=== PATIENT | male | born 1950 | race Caucasian/White ===

== ENCOUNTER 2020-02-02 12:18 | Inpatient (IN) ==
[2020-02-02] MEDS ORDERED: Ondansetron 4 MG/2 ML VIAL IVP PRN (13:32)
[2020-02-02] MEDS ORDERED: Dextrose Gel 15 GM/37.5 ML TUBE PO PRN ×2 (13:35)
[2020-02-02] MEDS ORDERED: D5% in Water 1,000 ML IVC PRN (13:35)
[2020-02-02] MEDS ORDERED: *HR* Dextrose 50 % in Water (Vial) 50 ML VIAL IVP PRN (13:35)
[2020-02-02] MEDS ORDERED: D5% in Water 1,000 ML IVC SCH (13:45)
[2020-02-02] MEDS: Apixaban 5 MG TABLET PO SCH (21:09)
[2020-02-02] MEDS: Melatonin 3 MG TABLET PO SCH (21:10)
[2020-02-03 08:05] LABS: BUN/Creatinine Ratio 38 (6-26); Blood Urea Nitrogen 21 mg/dL (8-23); Calcium 7.7 mg/dL (8.6-10.3); Carbon Dioxide 31 mEq/L (23-29); Chloride 104 mEq/L (98-107); Glucose 77 mg/dL (70-105); Magnesium 1.9 mg/dL (1.6-2.6); Osmolality,Calculated 294 (280-300); Phosphorous 2.4 mg/dL (2.7-4.5); Potassium 3.7 mEq/L (3.5-5.1); Sodium 141 mEq/L (136-145); eGFR For African Americans > 60 (> 60); eGFR For Non-African Americans > 60 (> 60)
[2020-02-03] MEDS: lisinopriL 20 MG TABLET PO SCH (08:35)
[2020-02-03] MEDS: Furosemide 20 MG TABLET PO SCH (08:35)
[2020-02-03] MEDS: Apixaban 5 MG TABLET PO SCH ×2 (08:35→20:55)
[2020-02-03] MEDS: Insulin DETEMIR 100 UNIT/ML X5UNITS SQ SCH (09:00)
[2020-02-03] MEDS ORDERED: Potassium Phosphate 44 MEQ in 0.9 % Sodium Chloride 250 ML IVPB ONE (09:00)
[2020-02-03] MEDS ORDERED: D5% in Water 1,000 ML IVC PRN (11:35)
[2020-02-03] MEDS ORDERED: *HR* Dextrose 50 % in Water (Vial) 50 ML VIAL IVP PRN (11:35)
[2020-02-03] MEDS ORDERED: Dextrose Gel 15 GM/37.5 ML TUBE PO PRN ×2 (11:35)
[2020-02-03] MEDS: Insulin LISPRO 300 UNITS/3 ML VIAL SQ SCH ×2 (11:48→16:24)
[2020-02-03] MEDS: Melatonin 3 MG TABLET PO SCH (20:55)
[2020-02-04 07:14] LABS: Basophils % 0.4 %; Eosinophils # 0.1 K/mcL (0.0-0.6); Eosinophils % 2.9 %; Hematocrit 37.8 % (37.5-50.1); Hemoglobin 12.4 g/dL (12.9-16.9); Immature Granulocytes % 0.4 % (0-4); Lymphocytes % 22.9 %; Mean Corpuscular HGB Conc 32.8 g/dL (31.6-35.5); Mean Corpuscular Hemoglobin 29.7 pg (28.0-33.3); Mean Corpuscular Volume 90.6 fL (83.0-100.0); Mean Platelet Volume 11.4 fL (9.4-12.4); Monocytes # 0.3 K/mcL (0.0-1.3); Monocytes % 6.7 %; Platelet Count 149 K/mcL (140-400); Red Blood Count 4.17 M/mcL (4.19-5.50); Red Cell Distribution Width 13.9 % (11.5-14.5); Segmented Neutrophils % 66.7 %; White Blood Count 4.5 K/mcL (4.3-11.1)
[2020-02-04 07:26] LABS: Alanine Aminotransferase 35 Units/L (7-52); Albumin 2.5 g/dL (3.5-5.7); Albumin/Globulin Ratio 1.1 (1.1-2.2); Alkaline Phosphatase 74 Units/L (34-104); Aspartate Amino Transferase 57 Units/L (13-39); BUN/Creatinine Ratio 32 (6-26); Bilirubin,Total 0.7 mg/dL (0.3-1.0); Blood Urea Nitrogen 18 mg/dL (8-23); Calcium 7.6 mg/dL (8.6-10.3); Carbon Dioxide 32 mEq/L (23-29); Chloride 104 mEq/L (98-107); Globulin 2.3 g/dL (2.4-3.5); Glucose 78 mg/dL (70-105); Osmolality,Calculated 293 (280-300); Phosphorous 3.8 mg/dL (2.7-4.5); Potassium 3.7 mEq/L (3.5-5.1); Sodium 141 mEq/L (136-145); Total Protein 4.8 g/dL (6.4-8.9); eGFR For African Americans > 60 (> 60); eGFR For Non-African Americans > 60 (> 60)
[2020-02-04 08:10] LABS: Platelet Estimate Normal (Normal)
[2020-02-04] MEDS: Insulin LISPRO 300 UNITS/3 ML VIAL SQ SCH ×3 (08:59→16:56)
[2020-02-04] MEDS: Furosemide 20 MG TABLET PO SCH (09:01)
[2020-02-04] MEDS: lisinopriL 20 MG TABLET PO SCH (09:01)
[2020-02-04] MEDS: Insulin DETEMIR 100 UNIT/ML X5UNITS SQ SCH ×2 (09:01→19:24)
[2020-02-04] MEDS: Apixaban 5 MG TABLET PO SCH ×2 (09:01→19:21)
[2020-02-04] MEDS: Acetaminophen 325 MG TABLET PO PRN (19:21)
[2020-02-04] MEDS: Melatonin 3 MG TABLET PO SCH (19:22)
[2020-02-05] MEDS: Insulin LISPRO 300 UNITS/3 ML VIAL SQ SCH ×3 (09:32→17:07)
[2020-02-05] MEDS: Furosemide 20 MG TABLET PO SCH (10:05)
[2020-02-05] MEDS: Insulin DETEMIR 100 UNIT/ML X5UNITS SQ SCH ×2 (10:05→21:20)
[2020-02-05] MEDS: lisinopriL 20 MG TABLET PO SCH (10:05)
[2020-02-05] MEDS: Apixaban 5 MG TABLET PO SCH ×2 (10:05→21:20)
[2020-02-05] MEDS: Acetaminophen 325 MG TABLET PO PRN ×2 (10:22→21:19)
[2020-02-05 10:55] LABS: Hematocrit 40.4 % (37.5-50.1); Hemoglobin 13.3 g/dL (12.9-16.9); Mean Corpuscular HGB Conc 32.9 g/dL (31.6-35.5); Mean Corpuscular Hemoglobin 29.7 pg (28.0-33.3); Mean Corpuscular Volume 90.2 fL (83.0-100.0); Mean Platelet Volume 11.2 fL (9.4-12.4); Platelet Count 166 K/mcL (140-400); Red Blood Count 4.48 M/mcL (4.19-5.50); Red Cell Distribution Width 13.7 % (11.5-14.5); White Blood Count 4.9 K/mcL (4.3-11.1)
[2020-02-05 11:27] LABS: Alanine Aminotransferase 28 Units/L (7-52); Albumin 2.7 g/dL (3.5-5.7); Alkaline Phosphatase 85 Units/L (34-104); Aspartate Amino Transferase 33 Units/L (13-39); BUN/Creatinine Ratio 23 (6-26); Bilirubin,Total 0.7 mg/dL (0.3-1.0); Blood Urea Nitrogen 14 mg/dL (8-23); Calcium 7.8 mg/dL (8.6-10.3); Carbon Dioxide 32 mEq/L (23-29); Chloride 103 mEq/L (98-107); Globulin 2.6 g/dL (2.4-3.5); Glucose 189 mg/dL (70-105); Magnesium 1.9 mg/dL (1.6-2.6); Osmolality,Calculated 298 (280-300); Sodium 141 mEq/L (136-145); Total Protein 5.3 g/dL (6.4-8.9); eGFR For African Americans > 60 (> 60); eGFR For Non-African Americans > 60 (> 60)
[2020-02-05] MEDS: Nystatin SUSP 5 ML UD.LIQ PO SCH ×3 (12:08→22:52)
[2020-02-05 17:37] LABS: Ferritin 121 ng/mL (20-250)
[2020-02-05] MEDS: Melatonin 3 MG TABLET PO SCH (21:19)
[2020-02-06] MEDS: lisinopriL 20 MG TABLET PO SCH (10:29)
[2020-02-06] MEDS: Acetaminophen 325 MG TABLET PO PRN ×2 (10:29→20:49)
[2020-02-06] MEDS: Insulin LISPRO 300 UNITS/3 ML VIAL SQ SCH ×3 (10:29→17:43)
[2020-02-06] MEDS: Nystatin SUSP 5 ML UD.LIQ PO SCH ×4 (10:29→20:49)
[2020-02-06] MEDS: Furosemide 20 MG TABLET PO SCH (10:29)
[2020-02-06] MEDS: Apixaban 5 MG TABLET PO SCH ×2 (10:29→20:49)
[2020-02-06] MEDS: Insulin DETEMIR 100 UNIT/ML X5UNITS SQ SCH ×2 (10:30→20:49)
[2020-02-06 11:08] LABS: Basophils % 0.2 %; Eosinophils # 0.2 K/mcL (0.0-0.6); Eosinophils % 2.5 %; Hematocrit 40.2 % (37.5-50.1); Hemoglobin 12.7 g/dL (12.9-16.9); Immature Granulocytes % 0.6 % (0-4); Lymphocytes # 1.3 K/mcL (0.6-4.6); Lymphocytes % 19.9 %; Mean Corpuscular HGB Conc 31.6 g/dL (31.6-35.5); Mean Corpuscular Hemoglobin 28.2 pg (28.0-33.3); Mean Corpuscular Volume 89.3 fL (83.0-100.0); Mean Platelet Volume 10.9 fL (9.4-12.4); Monocytes # 0.4 K/mcL (0.0-1.3); Neutrophils # 4.5 K/mcL (1.6-8.9); Platelet Count 212 K/mcL (140-400); Red Cell Distribution Width 13.8 % (11.5-14.5); Segmented Neutrophils % 70.8 %; White Blood Count 6.3 K/mcL (4.3-11.1)
[2020-02-06 11:20] LABS: BUN/Creatinine Ratio 18 (6-26); Blood Urea Nitrogen 11 mg/dL (8-23); Calcium 7.9 mg/dL (8.6-10.3); Carbon Dioxide 35 mEq/L (23-29); Chloride 103 mEq/L (98-107); Glucose 151 mg/dL (70-105); Osmolality,Calculated 292 (280-300); Potassium 4.3 mEq/L (3.5-5.1); Sodium 140 mEq/L (136-145); eGFR For African Americans > 60 (> 60); eGFR For Non-African Americans > 60 (> 60)
[2020-02-06] MEDS: Melatonin 3 MG TABLET PO SCH (20:49)
[2020-02-07] MEDS: Insulin LISPRO 300 UNITS/3 ML VIAL SQ SCH ×3 (07:21→16:44)
[2020-02-07 07:23] LABS: Hematocrit 38.1 % (37.5-50.1); Mean Corpuscular HGB Conc 31.5 g/dL (31.6-35.5); Mean Corpuscular Hemoglobin 27.7 pg (28.0-33.3); Mean Platelet Volume 10.6 fL (9.4-12.4); Platelet Count 213 K/mcL (140-400); Red Blood Count 4.33 M/mcL (4.19-5.50); Red Cell Distribution Width 13.8 % (11.5-14.5); White Blood Count 7.3 K/mcL (4.3-11.1)
[2020-02-07 07:54] LABS: BUN/Creatinine Ratio 17 (6-26); Blood Urea Nitrogen 10 mg/dL (8-23); Calcium 7.9 mg/dL (8.6-10.3); Carbon Dioxide 34 mEq/L (23-29); Chloride 104 mEq/L (98-107); Glucose 100 mg/dL (70-105); Osmolality,Calculated 289 (280-300); Potassium 4.2 mEq/L (3.5-5.1); Sodium 140 mEq/L (136-145); eGFR For African Americans > 60 (> 60); eGFR For Non-African Americans > 60 (> 60)
[2020-02-07] MEDS: Nystatin SUSP 5 ML UD.LIQ PO SCH ×4 (09:55→19:46)
[2020-02-07] MEDS: lisinopriL 20 MG TABLET PO SCH (09:55)
[2020-02-07] MEDS: Furosemide 20 MG TABLET PO SCH (09:55)
[2020-02-07] MEDS: Apixaban 5 MG TABLET PO SCH ×2 (09:55→19:45)
[2020-02-07] MEDS: Insulin DETEMIR 100 UNIT/ML X5UNITS SQ SCH ×2 (09:56→19:46)
[2020-02-07 10:14] LABS: C-Reactive Protein 17 mg/L (Less than 10)
[2020-02-07] MEDS: Melatonin 3 MG TABLET PO SCH (19:45)
[2020-02-07] MEDS: Acetaminophen 325 MG TABLET PO PRN (19:46)
[2020-02-08] MEDS ORDERED: cloNIDine HCL 0.1 MG TABLET PO PRN (07:59)
[2020-02-08] MEDS: Insulin LISPRO 300 UNITS/3 ML VIAL SQ SCH ×3 (08:25→16:48)
[2020-02-08] MEDS: Acetaminophen 325 MG TABLET PO PRN ×2 (08:27→21:49)
[2020-02-08] MEDS: lisinopriL 20 MG TABLET PO SCH (08:28)
[2020-02-08] MEDS: Apixaban 5 MG TABLET PO SCH ×2 (08:28→20:43)
[2020-02-08] MEDS: Furosemide 20 MG TABLET PO SCH (08:28)
[2020-02-08] MEDS: Insulin DETEMIR 100 UNIT/ML X5UNITS SQ SCH ×2 (08:28→20:43)
[2020-02-08] MEDS: Nystatin SUSP 5 ML UD.LIQ PO SCH ×4 (08:28→20:46)
[2020-02-08 09:18] LABS: Basophils % 0.1 %; Eosinophils # 0.2 K/mcL (0.0-0.6); Eosinophils % 2.6 %; Hematocrit 42.7 % (37.5-50.1); Hemoglobin 13.4 g/dL (12.9-16.9); Immature Granulocytes % 0.7 % (0-4); Lymphocytes # 1.4 K/mcL (0.6-4.6); Lymphocytes % 18.5 %; Mean Corpuscular HGB Conc 31.4 g/dL (31.6-35.5); Mean Corpuscular Volume 89.3 fL (83.0-100.0); Mean Platelet Volume 10.7 fL (9.4-12.4); Monocytes # 0.6 K/mcL (0.0-1.3); Monocytes % 7.7 %; Neutrophils # 5.3 K/mcL (1.6-8.9); Platelet Count 271 K/mcL (140-400); Red Blood Count 4.78 M/mcL (4.19-5.50); Red Cell Distribution Width 14.1 % (11.5-14.5); Segmented Neutrophils % 70.4 %; White Blood Count 7.6 K/mcL (4.3-11.1)
[2020-02-08 09:35] LABS: BUN/Creatinine Ratio 14 (6-26); Blood Urea Nitrogen 10 mg/dL (8-23); Calcium 8.3 mg/dL (8.6-10.3); Carbon Dioxide 35 mEq/L (23-29); Chloride 100 mEq/L (98-107); Glucose 151 mg/dL (70-105); Osmolality,Calculated 288 (280-300); Potassium 4.5 mEq/L (3.5-5.1); Sodium 138 mEq/L (136-145); eGFR For African Americans > 60 (> 60); eGFR For Non-African Americans > 60 (> 60)
[2020-02-08] MEDS: Melatonin 3 MG TABLET PO SCH (20:43)
[2020-02-08] MEDS ORDERED: Insulin LISPRO 300 UNITS/3 ML VIAL SUBQ ONE (21:28)
[2020-02-09 07:24] LABS: Basophils % 0.3 %; Eosinophils # 0.1 K/mcL (0.0-0.6); Eosinophils % 1.8 %; Hematocrit 39.2 % (37.5-50.1); Hemoglobin 12.4 g/dL (12.9-16.9); Immature Granulocytes % 0.5 % (0-4); Lymphocytes # 1.1 K/mcL (0.6-4.6); Lymphocytes % 14.5 %; Mean Corpuscular HGB Conc 31.6 g/dL (31.6-35.5); Mean Corpuscular Hemoglobin 28.1 pg (28.0-33.3); Mean Corpuscular Volume 88.9 fL (83.0-100.0); Mean Platelet Volume 10.4 fL (9.4-12.4); Monocytes # 0.6 K/mcL (0.0-1.3); Monocytes % 7.8 %; Neutrophils # 5.6 K/mcL (1.6-8.9); Platelet Count 233 K/mcL (140-400); Red Blood Count 4.41 M/mcL (4.19-5.50); Red Cell Distribution Width 14.1 % (11.5-14.5); Segmented Neutrophils % 75.1 %; White Blood Count 7.4 K/mcL (4.3-11.1)
[2020-02-09] MEDS: Insulin LISPRO 300 UNITS/3 ML VIAL SQ SCH ×3 (07:25→16:57)
[2020-02-09] MEDS: Nystatin SUSP 5 ML UD.LIQ PO SCH ×4 (07:25→20:32)
[2020-02-09] MEDS: Furosemide 20 MG TABLET PO SCH (07:25)
[2020-02-09] MEDS: Acetaminophen 325 MG TABLET PO PRN (07:25)
[2020-02-09] MEDS: lisinopriL 20 MG TABLET PO SCH (07:25)
[2020-02-09] MEDS: Apixaban 5 MG TABLET PO SCH ×2 (07:25→20:31)
[2020-02-09 07:41] LABS: BUN/Creatinine Ratio 18 (6-26); Blood Urea Nitrogen 12 mg/dL (8-23); Calcium 8.1 mg/dL (8.6-10.3); Carbon Dioxide 33 mEq/L (23-29); Chloride 102 mEq/L (98-107); Glucose 163 mg/dL (70-105); Osmolality,Calculated 289 (280-300); Potassium 4.6 mEq/L (3.5-5.1); Sodium 138 mEq/L (136-145); eGFR For African Americans > 60 (> 60); eGFR For Non-African Americans > 60 (> 60)
[2020-02-09 09:46] LABS: Ferritin 80 ng/mL (20-250)
[2020-02-09] MEDS: Insulin DETEMIR 100 UNIT/ML X5UNITS SQ SCH ×2 (10:10→20:30)
[2020-02-09] MEDS ORDERED: Gabapentin 300 MG CAPSULE PO ONE (10:57)
[2020-02-09 12:08] LABS: C-Reactive Protein 7 mg/L (Less than 10)
[2020-02-09] MEDS: Gabapentin 300 MG CAPSULE PO SCH ×2 (16:57→20:31)
[2020-02-09] MEDS ORDERED: *HR* HYDROcodone/Acet 5/325 mg TABLET PO ONE (17:08)
[2020-02-09] MEDS: Melatonin 3 MG TABLET PO SCH (20:31)
[2020-02-09] MEDS ORDERED: Gabapentin 100 MG CAPSULE PO SCH (21:00)
[2020-02-10 07:49] LABS: Basophils % 0.3 %; Eosinophils # 0.1 K/mcL (0.0-0.6); Eosinophils % 2.1 %; Hematocrit 38.2 % (37.5-50.1); Hemoglobin 12.1 g/dL (12.9-16.9); Immature Granulocytes % 0.5 % (0-4); Lymphocytes # 1.2 K/mcL (0.6-4.6); Lymphocytes % 18.9 %; Mean Corpuscular HGB Conc 31.7 g/dL (31.6-35.5); Mean Corpuscular Hemoglobin 28.3 pg (28.0-33.3); Mean Corpuscular Volume 89.5 fL (83.0-100.0); Mean Platelet Volume 10.4 fL (9.4-12.4); Monocytes # 0.5 K/mcL (0.0-1.3); Monocytes % 8.3 %; Neutrophils # 4.4 K/mcL (1.6-8.9); Platelet Count 220 K/mcL (140-400); Red Blood Count 4.27 M/mcL (4.19-5.50); Red Cell Distribution Width 14.4 % (11.5-14.5); Segmented Neutrophils % 69.9 %; White Blood Count 6.3 K/mcL (4.3-11.1)
[2020-02-10 08:07] LABS: BUN/Creatinine Ratio 20 (6-26); Blood Urea Nitrogen 15 mg/dL (8-23); Calcium 8.2 mg/dL (8.6-10.3); Carbon Dioxide 34 mEq/L (23-29); Chloride 100 mEq/L (98-107); Glucose 272 mg/dL (70-105); Osmolality,Calculated 292 (280-300); Sodium 136 mEq/L (136-145); eGFR For African Americans > 60 (> 60); eGFR For Non-African Americans > 60 (> 60)
[2020-02-10] MEDS: Insulin LISPRO 300 UNITS/3 ML VIAL SQ SCH ×2 (09:22→11:40)
[2020-02-10] MEDS: Insulin DETEMIR 100 UNIT/ML X5UNITS SQ SCH (09:25)
[2020-02-10] MEDS: Acetaminophen 325 MG TABLET PO PRN (09:29)
[2020-02-10] MEDS: Apixaban 5 MG TABLET PO SCH ×2 (09:30→21:02)
[2020-02-10] MEDS: Gabapentin 300 MG CAPSULE PO SCH ×2 (09:30→17:35)
[2020-02-10] MEDS: lisinopriL 20 MG TABLET PO SCH (09:30)
[2020-02-10] MEDS: Furosemide 20 MG TABLET PO SCH (09:31)
[2020-02-10] MEDS: Nystatin SUSP 5 ML UD.LIQ PO SCH ×4 (09:31→21:03)
[2020-02-10] MEDS ORDERED: Insulin LISPRO 300 UNITS/3 ML VIAL SUBQ SCH (15:14)
[2020-02-10] MEDS: Insulin LISPRO 300 UNITS/3 ML VIAL SUBQ SCH (17:35)
[2020-02-10] MEDS ORDERED: Gabapentin 400 MG CAPSULE PO SCH (21:00)
[2020-02-10] MEDS: Melatonin 3 MG TABLET PO SCH (21:02)
[2020-02-11 06:27] VITALS: BP 138/73
[2020-02-11] MEDS ORDERED: Insulin DETEMIR 100 UNIT/ML X5UNITS SUBQ SCH (09:00)
[2020-02-11] MEDS: Furosemide 20 MG TABLET PO SCH (09:53)
[2020-02-11] MEDS: Nystatin SUSP 5 ML UD.LIQ PO SCH ×3 (09:53→16:44)
[2020-02-11] MEDS: Apixaban 5 MG TABLET PO SCH (09:53)
[2020-02-11] MEDS: lisinopriL 20 MG TABLET PO SCH (09:53)
[2020-02-11] MEDS: Gabapentin 300 MG CAPSULE PO SCH ×2 (09:53→16:44)
[2020-02-11] MEDS: Insulin LISPRO 300 UNITS/3 ML VIAL SUBQ SCH ×3 (09:54→16:44)
== END 2020-02-11 16:50 | disposition home or self-care (01) | DRG 177 ==
LOC: INPPIK 18:49
PROVIDERS: ADMIT Family Medicine; ATTEND Family Medicine